=== PATIENT | female | born 1970 | race Caucasian/White ===

== ENCOUNTER → 2016-10-05 | Outpatient (CLI) | payer OTHER | LOC: FIMAGING 08:13 | DX: Z12.31 Encounter for screening mammogram for malignant neoplasm of breast (principal) | CPT/HCPCS: G0202 ==

== ENCOUNTER → 2017-10-29 | Outpatient (CLI) | payer OTHER | LOC: FIMAGING 08:00 | PROVIDERS: ATTEND Obstetrics & Gynecology Gynecology | DX: Z12.31 Encounter for screening mammogram for malignant neoplasm of breast (principal) ==

== ENCOUNTER 2018-11-22 09:47 | Emergency (ER) | payer OTHER ==
[2018-11-22] MEDS ORDERED: TDAP ADULT 0.5 ML INJ (BOOSTRIX) IM ONE (10:15)
--- NOTE | 2018-11-22 10:15 | EDPHY ---
General Time Seen by Provider: 11/22/18 10:13 Narrative: CLINICAL IMPRESSION: Right eyebrow laceration ASSESSMENT/PLAN: Patient is a 48-year-old female with no significant medical history who presents to the emergency department after sustaining a trip and fall while running complaining of a right eyebrow laceration. Patient is not toxic appearing, she is in no distress. The fall was witnessed and there was no loss of consciousness. Her neurological exam is grossly normal with no focal deficit. Examination reveals 2.5 cm laceration right lateral brow. She has no new focal neurologic deficit, there has been no altered mentation, there are no clinical findings to suggest skull fracture, there is no known bleeding disorder , there has been no vomiting and no posttraumatic seizure. Given the patients history and physical and negative Superior head CT rule, we feel a head CT is not indicated at this time. There is no evidence of deep structure involvement , neurovascular compromise, foreign body, or bony involvement. The wound was not contaminated, tetanus status was updated in the emergency department. The wound was irrigated and then repaired as discussed in the procedure note, the patient tolerated this well. Wound care instructions discussed with patient, she will return to the emergency department in 5 days for suture removal. Return precautions discussed- she will return for increased pain, signs of infection, fever, vomiting, if the wound opens or for any other concerns. Patient verbalizes understanding and is in agreement with plan. DIFFERENTIAL DIAGNOSIS: includes but not limited to laceration of tendon or vascular structure, underlying fracture, TBI, ICH, laceration with retained FB ED PROCEDURES: Laceration Repair Verbal consent obtained by patient. Risks discussed, including but not limited to infection, pain, retained foreign body, need for additional repair, poor cosmetic result, tendon damage, nerve damage, poor wound healing, vascular damage. Alternatives to repair discussed. [place] protocol used to establish correct patient, procedure, equipment, research support specialist, and site. Anesthesia obtained by local infiltration. Anesthetized with 1% lidocaine with epinephrine. Laceration location right lateral eyebrow, length 2.5 cm, depth 5 mm, Repair type simple. Patient was prepped and draped in usual sterile fashion. Hemostasis achieved with direct pressure. Wound explored through full range of motion and entire depth of wound probed and visualized with gloved finger. No suspicion for nerve damage, tendon damage, underlying fracture, vascular damage, foreign body, or contamination. Area was cleansed with Shur-Clens and irrigated with sterile saline as per protocol. No foreign body or material removed. Repair method 7 0 Prolene, interrupted. Seven sutures placed. Well aligned, closely approximated. wound was dressed with antibiotic ointment. Patient tolerated well with no immediate complications. Wound care: Clean and dry x 24 hours, gently clean with soap and water, cover with topical antibiotic ointment. Suture/Staple removal: 5 days Days CHIEF COMPLAINT: Facial Laceration HPI: Patient is a 48-year-old female with no significant medical history, presents to the emergency department after sustaining a trip and fall while running complaining of a facial laceration. Patient reports she was running with her dog, leash wrapped around her waist. She was trying to avoid running into a fire hydrant when her dog went [address] way and she went the other causing her to trip and fall. She landed on her hands and hit her head on the ground. She did not lose consciousness, she presents complaining only of the laceration of her right brow as well as bilateral hand pain. Patient is not on any anti-platelet or anticoagulation therapy, there has been no altered mentation, no retrograde amnesia, no vomiting and no posttraumatic seizure. She denies any headache, dizziness or eye pain. She denies any neck or back pain. She describes mild pain on bilateral pads of her hands, denies any limited range of motion or significant pain. She is right handed, she is not up-to-date on her tetanus status. PAST MEDICAL HISTORY: Denies Social History: Denies cigarette smoking or illicit drug use REVIEW OF SYSTEMS: All other systems negative Constitutional: No fever, no chills Musculoskeletal: Bilateral hand pain. Skin: Facial laceration Neurological: No sensory loss or weakness. PHYSICAL EXAM: General Appearance: Alert, oriented, appropriate for age, cooperative, NAD, well hydrated, non-toxic appearing, VSS, no hypoxia. HEENT: Normocephalic. 2.5 cm laceration right lateral brow, there is a mild amount of ecchymosis inferior to her laceration. There is no orbital tenderness to palpation. PERRLA, EOMI without evidence of entrapment. External ears are normal, TMs are normal with pearly lopez reflex, no evidence of hemotympanum bilaterally. No mastoid tenderness bilaterally. Nares are clear, no nasal bridge tenderness. Oropharynx is clear, no mandibular tenderness to palpation. Dentition is normal without evidence of trauma. Neck: Supple, no midline cervical spinal tenderness to palpation, no step-off or deformity. Full range of motion. Neurological: Alert and oriented x 3, grossly normal with no focal deficit Skin: Warm and dry Upper Extremities: Bilateral shoulders, elbows and forearms are nontender with full range of motion. Compartments are soft. Patient with tenderness to palpation mildly along the palmar aspect of her hands. There is no wrist tenderness to palpation, no anatomical snuffbox tenderness to palpation bilaterally. Patient has full range of motion of both wrists with flexion, extension, inversion and eversion. 2+ radial pulses bilaterally. There is no hand or feet digital tenderness. Two point discrimination is intact distally. No edema, ecchymosis or abrasions. Lower Extremities: Intact distal pulses, No edema, No tenderness, No cyanosis, full range of motion intact, No calf tenderness bilaterally. MEDICAL DECISION MAKING: Patient was seen independently. Secondary supervising physician at time of evaluation was Dr. Isaacs, he did not evaluate this patient. Diagnosis: Right eyebrow laceration. New, requires workup Summary: See assessment and plan for summary of ED visit Clinical lab tests: Not applicable. Independent visualization of images, tracing, or specimens not applicable. Decision to obtain medical records or history from someone other than the patient: Yes, friend and Witness Review / Summarize previous medical records: Yes Dispo: Stable, discharged - History Smoking Status: Never smoked - Objective Vital Signs: Initial Vital Signs Temperature (C) 36.5 C 11/22/18 09:56 Heart Rate 63 11/22/18 09:56 Respiratory Rate 16 11/22/18 09:56 Blood Pressure 128/79 H 11/22/18 09:56 O2 Sat (%) 96 11/22/18 09:56 O2 Delivery Mode Room Air Allergies/Adverse Reactions: amoxicillin Allergy (Mild, Verified 11/22/18 09:59) Rash Home Medications: Medication Instructions Recorded NK [No Known Home Meds] 11/22/18 Medications Given: Discontinued Medications Diphtheria/Tetanus/Acell Pertussis (Boostrix) 0.5 ml IM .ONCE ONE Stop: 11/22/18 10:16 Last Admin: 11/22/18 10:18 Dose: 0.5 ml Departure - Departure Disposition: Home, Routine, Self-Care Clinical Impression: Facial laceration Qualifiers: Encounter type: initial encounter Qualified Code(s): S01.81XA - Laceration without foreign body of other part of head, initial encounter Contusion, hand Qualifiers: Encounter type: initial encounter Laterality: unspecified laterality Qualified Code(s): S60.229A - Contusion of unspecified hand, initial encounter Condition: Good Instructions: Laceration (ED) Additional Instructions: DISCHARGE INSTRUCTIONS FROM YOUR DOCTOR Thank you for visiting our emergency department today. Please keep in mind that discharge from the emergency department does not mean that there is nothing wrong - it simply means that we have not identified an emergency condition that requires further evaluation or treatment in the hospital. You should always plan to follow up with primary care for re-evaluation of your condition in the next 2-3 days. Keep wound clean and dry for 24 hours. Clean at least twice daily or when soiled with soap and water, apply antibiotic ointment and dressing. Do not soak the wound while the stitches are in place. Anticipate suture removal in 5 days. Tylenol every 4-6 hours as directed as needed for pain. Do not exceed 4000 mg in 24 hours. Ibuprofen as directed every 6-8 hours with food as needed for pain. Stop for stomach upset. Do not exceed 2400 mg in 24 hours. Continue your regular medications as prescribed. Schedule a follow-up visit with your primary care physician or the emergency department for suture removal in 5 days and sooner for wound check for any concerns. Return for signs of wound infection ie: redness, swelling, drainage, foul odor, red streaks, fever, chills, pain, bleeding, if the stitches pop, if the wound opens or for any other new, worsening or worrisome symptoms. People present with illnesses and injuries in different ways, and it is always possible that we have missed something. You may always return for re-evaluation if symptoms worsen or if they are not improving or if you develop new/different symptoms. Again, thank you for choosing our emergency department. We hope that you feel better. Referrals: Puja Mike MD [Primary Care Provider] - As per Instructions ED,PHYSICIAN SANTHOSH [Medical Doctor] - As per Instructions (Please return to the emergency department in 5 days for suture removal.)
[2018-11-22 11:31] VITALS: BP 118/76
== END 2018-11-22 11:31 | disposition home or self-care (01) ==
PROC: 0HQ1XZZ Repair Face Skin, External Approach (ICD-10-PCS; principal; 2018-11-22)
DX: S01.81XA Laceration without foreign body of other part of head, initial encounter (principal); S60.221A Contusion of right hand, initial encounter; S60.222A Contusion of left hand, initial encounter; Z23 Encounter for immunization; W01.0XXA Fall on same level from slipping, tripping and stumbling without subsequent striking against object, initial encounter; Y93.K1 Activity, walking an animal; Y92.9 Unspecified place or not applicable; Y99.9 Unspecified external cause status

== ENCOUNTER → 2018-12-31 | Outpatient (CLI) | payer OTHER | LOC: CIMAGING 07:55 | PROVIDERS: ATTEND Obstetrics & Gynecology Gynecology | DX: Z12.31 Encounter for screening mammogram for malignant neoplasm of breast (principal) ==